=== PATIENT | female | born 1975 | race Caucasian/White ===

== ENCOUNTER 2022-01-19 23:22 | Emergency (ER) | payer OTHER ==
[~2022-01-19] VITALS: Ht 175.3 cm; Wt 106.6 kg
[~2022-01-19 23:22] MED LIST: KLONOPIN PO
--- NOTE | 2022-01-20 00:50 | NUR ---
R.Patient called to be triaged but was not present in the waiting room or outside of
[2022-01-20 01:56] LABS: *BILIRUBIN,URIN NEGATIVE (NEGATIVE); *BLOOD, URINE NEGATIVE (NEGATIVE); *CLARITY,URINE CLEAR (CLEAR); *COLOR,URINE YELLOW (YELLOW); *KETONES,URINE NEGATIVE (NEGATIVE); *UROBILINOGEN,URINE 0.2 E.U./dl (NORMAL); LEUKOCYTE ESTERASE ,URINE NEGATIVE (NEGATIVE); NITRITE, URINE NEGATIVE (NEGATIVE); PH,URINE 5.5 (5.0-8.0); UGLUCOSE TRACE (NEGATIVE)
[2022-01-20 02:54] VITALS: BP 133/71
--- NOTE | 2022-01-20 02:54 | NUR ---
Patient discharged to home in stable condition. Written and verbal after care instructions given. Patient verbalizes understanding of instructions. Stressed follow up or return to ER for worsening s/s.
== END 2022-01-20 02:55 | disposition home or self-care (01) ==
LOC: ER 23:29
DX: L98.8 Other specified disorders of the skin and subcutaneous tissue (principal); N89.8 Other specified noninflammatory disorders of vagina; Z88.0 Allergy status to penicillin; R03.0 Elevated blood-pressure reading, without diagnosis of hypertension
CPT/HCPCS: 87210; A4663

== ENCOUNTER 2022-05-22 11:19 | Emergency (ER) | payer OTHER ==
[~2022-05-22] VITALS: Ht 175.3 cm; Wt 111.1 kg
[2022-05-22] MEDS ORDERED: CLON0.5T23 PO (11:43)
[2022-05-22 12:26] LABS: HEMATOCRIT 31.8 % (31.2-41.9); MEAN CORPUSCULAR HEMOGLOBIN 24.6 uug (24.7-32.8); MEAN CORPUSCULAR VOLUME 79.3 fL (75.5-95.3); PLATELET COUNT (AUTO) 360 K/uL (179-408)
[2022-05-22 12:36] LABS: CARBON DIOXIDE 29 mmol/L (21-32); CHLORIDE 104 mmol/L (98-107); CREATININE 0.7 mg/dL (0.6-1.3); GLUCOSE 97 mg/dL (74-106); POTASSIUM 4.1 mmol/L (3.5-5.1); UREA NITROGEN, BLOOD 15 mg/dL (7-18)
[2022-05-22] MEDS ORDERED: IBUPROFEN 600 MG TABLET ONE (14:29)
[2022-05-22] MEDS ORDERED: IBUPROFEN 100 MG/5 ML LIQUID UDC PO ONE (14:30)
[2022-05-22] MEDS ORDERED: SWABABLE VALVE TRANSFER SET EA MC ONE (16:02)
[2022-05-22] MEDS ORDERED: IV NORMAL SALINE 250 ML IV ONE (16:02)
[2022-05-22] MEDS ORDERED: IOHEXOL 350 100 ML INFUS..BTL ONE (16:02)
== END 2022-05-22 17:46 | disposition home or self-care (01) ==
LOC: ER 11:33
DX: R07.89 Other chest pain (principal); I80.01 Phlebitis and thrombophlebitis of superficial vessels of right lower extremity; I51.7 Cardiomegaly; I31.39 Other pericardial effusion (noninflammatory); Z88.0 Allergy status to penicillin; Z88.1 Allergy status to other antibiotic agents; Z79.899 Other long term (current) drug therapy
CPT/HCPCS: 99285; 71275; 93971; 71045; 80048; 83880; 85025; 85379; 84484 ×2; 36415; 93005; 73630; Q9967; A4663

== ENCOUNTER 2024-03-05 20:45 | Emergency (ER) | payer OTHER ==
[~2024-03-05] VITALS: Ht 175.3 cm; Wt 80.7 kg
[~2024-03-05 20:45] MED LIST changes: +CLON0.5T23 PO
[2024-03-06 02:07] LABS: BASOPHILS % (AUTO) 0.4 % (0.0-2.0); EOSINOPHILS % (AUTO) 0.3 % (0.0-7.0); HEMATOCRIT 33.5 % (31.2-41.9); HEMOGLOBIN 10.6 g/dL (10.9-14.3); LYMPHOCYTES % (AUTO) 13.7 % (20.5-51.5); MEAN CORPUSCULAR HEMOGLOBIN 25.3 uug (24.7-32.8); MEAN CORPUSCULAR HGB CONC 32 g/dL (32.3-35.6); MEAN CORPUSCULAR VOLUME 80.2 fL (75.5-95.3); MONOCYTES # (AUTO) 0.2 K/uL (0.1-1.30); MONOCYTES % (AUTO) 3.5 % (0.0-11.0); NEUTROPHILS # (AUTO) 5.7 K/uL (1.8-8.9); NEUTROPHILS % (AUTO) 82.1 % (38.5-71.5); PLATELET COUNT (AUTO) 402 K/uL (179-408); RED BLOOD CELL COUNT(AUTO) 4.18 MIL/uL (3.63-4.92); RED CELL DISTRIBUTION WIDTH 16.4 % (12.3-17.7)
[2024-03-06 02:11] LABS: DIFFERENTIAL COMMENT 1
[2024-03-06 02:43] LABS: ALANINE AMINOTRANSFERASE 21 U/L (14-59); ALBUMIN 3.9 g/dL (3.4-5.0); ALKALINE PHOSPHATASE 117 U/L (50-136); ASPARTATE AMINOTRANSFERASE 20 U/L (15-37); BILIRUBIN,DIRECT 0.1 mg/dL (0.0-0.2); BILIRUBIN,TOTAL 0.4 mg/dL (0.2-1.0); CALCIUM 9.7 mg/dL (8.5-10.1); CARBON DIOXIDE 28 mmol/L (21-32); CHLORIDE 103 mmol/L (98-107); CREATININE 0.7 mg/dL (0.6-1.3); GLUCOSE 114 mg/dL (74-106); LIPASE 55 U/L (16-77); POTASSIUM 4.1 mmol/L (3.5-5.1); SODIUM SERUM 141 mmol/L (136-145); TOTAL PROTEIN, SERUM 8.8 g/dL (6.4-8.2); UREA NITROGEN, BLOOD 14 mg/dL (7-18)
[2024-03-06 02:45] LABS: PREGNANCY TEST SERUM QUAN 3 miul/L (0-6)
[2024-03-06 02:58] LABS: *BILIRUBIN,URIN NEGATIVE (NEGATIVE); *BLOOD, URINE NEGATIVE (NEGATIVE); *CLARITY,URINE CLEAR (CLEAR); *COLOR,URINE YELLOW (YELLOW); *KETONES,URINE 1+ (NEGATIVE); *PROTEIN,URINE 1+ (NEGATIVE); *UROBILINOGEN,URINE 0.2 E.U./dl (NORMAL); LEUKOCYTE ESTERASE ,URINE NEGATIVE (NEGATIVE); NITRITE, URINE NEGATIVE (NEGATIVE); UGLUCOSE NEGATIVE (NEGATIVE)
[2024-03-06 03:09] LABS: BACTERIA,URINE FEW /HPF (NONE SEEN); RBC,URINE 0-3 /HPF (0-3); SQUAMOUS EPITHELIAL CELL,UR FEW /HPF (NONE SEEN); URIC ACID CRYSTALS,URINE FEW /HPF (NONE SEEN); WBC,URINE 0-3 /HPF (0-3)
[2024-03-06 03:10] LABS: MUCUS,URINE FEW /LPF (0-FEW)
[2024-03-06] MEDS: KETOROLAC TROMETHAMINE 15 MG INJ IVP ONE (05:20)
[2024-03-06] MEDS ORDERED: KETOROLAC TROMETHAMINE 15 MG INJ ONE (05:47)
[2024-03-06] MEDS ORDERED: IBUP-1957 PO (06:02)
[2024-03-06] MEDS ORDERED: METO-295 PO (06:02)
[2024-03-06] MEDS ORDERED: SUCR1ORA4 PO (06:02)
[2024-03-06 06:25] VITALS: BP 125/61; TEMP 98.2; O2SAT 98
== END 2024-03-06 06:26 | disposition home or self-care (01) ==
LOC: ER 20:45
DX: R07.9 Chest pain, unspecified (principal); R10.11 Right upper quadrant pain; F41.9 Anxiety disorder, unspecified; R10.2 Pelvic and perineal pain; Z98.84 Bariatric surgery status; Z60.2 Problems related to living alone; Z88.0 Allergy status to penicillin
CPT/HCPCS: 99285; 74176; 96374; 71045; 80076; 80048; 81001; 83690; 85025; 85730; 84484; 84702; 36415; 93005; J1885; A4606; A4663